=== PATIENT | male | born 1970 | race Two or more races ===

== ENCOUNTER → 2020-01-19 | Emergency (ER) | payer MEDICAID ==
[~2020-01-19] VITALS: Ht 180.3 cm; Wt 97.1 kg
[~2020-01-19] MED LIST: HYDROmorphone HCL 2 MG/ML VL IV ONE; ONDANSETRON HCL 4 MG/2 ML VIAL IV ONE; PANTOPRAZOLE 40 MG/10 ML VIAL INJ IV STA; SODIUM CHLORIDE 0.9% 500 ML IVB ONE; cefTRIAXone 1GM/50ML D5W 50 ML IV ONE
[2020-01-19 19:18] LABS: Albumin 3.6 g/dL (3.4-5.0); Amylase 45 U/L (25-115); Anion Gap 7 (5-15); Blood Urea Nitrogen 11 mg/dL (7-18); Calcium 8.6 mg/dL (8.5-10.1); Carbon Dioxide 24 mmol/L (21-32); Chloride 108 mmol/L (98-107); Glucose 112 mg/dL (74-106); Lipase 64 U/L (73-393); Potassium 3.6 mmol/L (3.5-5.1); Sodium 139 mmol/L (136-145)
[2020-01-19 19:23] LABS: Alanine Aminotransferase 43 U/L (16-61); Alkaline Phosphatase 75 U/L (45-117); Aspartate Aminotransferase 23 U/L (15-37); BUN/Creatinine Ratio 10.7; Bilirubin, Total 0.5 mg/dL (0.2-1.0); GFR African American 99 mL/min; GFR Non-African American 82 mL/min; Total Protein 7.2 g/dL (6.4-8.2)
[2020-01-19 19:24] LABS: Basophils # (auto) 0 10 ^3/uL (0-0.2); Basophils % (auto) 0.2 % (0.0-2.0); Eosinophils # (auto) 0 10 ^3/uL (0-0.8); Eosinophils % (auto) 0.1 % (0.0-7.0); Hematocrit 44.2 % (41.0-53.0); Hemoglobin 15.2 g/dL (13.5-17.5); Lymphocytes # (auto) 0.9 10 ^3/uL (0.4-5.4); Lymphocytes % (auto) 6.9 % (10.0-50.0); Mean Corpuscular Hemoglobin 29.6 pg (28.0-32.0); Mean Corpuscular Hgb Conc. 34.4 g/dL (32.0-36.0); Mean Corpuscular Volume 86.2 fL (80.0-100.0); Monocytes # (auto) 0.8 10 ^3/uL (0-1.3); Monocytes % (auto) 6.3 % (0.0-12.0); Neutrophils # (auto) 10.7 10 ^3/uL (1.6-8.6); Neutrophils % (auto) 86.5 % (37.0-80.0); Nucleated Red Blood Cells % 0.1 %; Platelet Count (auto) 198 10^3/uL (140-450); Red Blood Cells 5.13 10^6/uL (4.5-5.90); Red Cell Distribution Width 12.7 % (11.8-14.3); White Blood Cell 12.4 10^3/uL (4.4-10.8)
[2020-01-19 21:00] VITALS: BP 127/77
== END | disposition home or self-care (01) ==
LOC: ER 17:29
DX: R10.11 Right upper quadrant pain (principal); R11.2 Nausea with vomiting, unspecified; I10 Essential (primary) hypertension; Z90.89 Acquired absence of other organs
CPT/HCPCS: 36415; 74176; 76705; 80053; 82150; 83690; 84484; 85025; 93005; 96361; 96365; 96375; 99285; C9113; J1170; J2405; J7030